=== PATIENT | female | born 1965 | race Caucasian/White ===

== ENCOUNTER → 2023-09-24 | Outpatient (CLI) | payer BC ==
--- NOTE | 2023-09-24 14:13 | FL ---
EXAMINATION TYPE: FL barium swallow DATE OF EXAM: 09/24/2023 CLINICAL INDICATION: 57-year-old female K21.9 GASTRO-ESOPHAGEAL REFLUX DISEASE COMPARISON: None Total Fluoroscopy Time: 2 minutes 23 seconds 296.03 mGycm2 DAP 44 images obtained. FINDINGS: There are a couple episodes of deep penetration noted with coating of the vocal folds. These are sile nt episodes. When the patient is drinking prone/supine, an episode of trace silent aspiration is seen . Otherwise, the hypopharyngeal anatomy is preserved. The cervical and thoracic portions have a normal course and caliber and normal motility. The mucosa is normal and no persistent filling defect is encountered. There is a tiny sliding hiatal hernia. No gastroesophageal reflux seen during the course of the exam. IMPRESSION: 1. There is a tiny sliding hiatal hernia. 2. Unable to elicit any gastroesophageal reflux during the course of the exam. Note that this does no t exclude its possibility. 3. A couple episodes of silent deep penetration and one episode of trace silent aspiration. Clinicall y correlate. Consider speech pathology evaluation if indicated.
== END | disposition home or self-care (01) ==
LOC: RADUSWWP 08:42
PROVIDERS: ATTEND Otolaryngology Otolaryngology/Facial Plastic Surgery
DX: K21.9 Gastro-esophageal reflux disease without esophagitis (principal); K44.9 Diaphragmatic hernia without obstruction or gangrene
CPT/HCPCS: 74220

== ENCOUNTER → 2023-10-05 | Outpatient (CLI) | payer BC ==
--- NOTE | 2023-10-05 11:35 | FL ---
Exam Date: 10/05/2023 11:11 AM. Modified barium swallow for dysphagia. Consistencies administered: Various consistency of barium. Fluoro time: 39 seconds No images were sent to PACS. Please see speech pathology report. DAP: Not reported mGym2 Gycm2
== END | disposition home or self-care (01) ==
LOC: RADFLMAIN 10:33
PROVIDERS: ATTEND Otolaryngology Otolaryngology/Facial Plastic Surgery
DX: R13.10 Dysphagia, unspecified (principal)
CPT/HCPCS: 74230